=== PATIENT | female | born 1970 | race Caucasian/White ===

== ENCOUNTER 2017-03-07 20:37 | Emergency (ER) | payer OTHER ==
[2017-03-07 20:47] VITALS: BMI 33.3
--- NOTE | 2017-03-07 20:51 | PDOC ---
History of Present Illness - History of Present Illness Initial Comments: 03/07/17 21:14 Patient is a 46 year old female (LNMP: 02/06/17) with significant medical hx of HLD and hyperthyroidism who is presenting to the ED with light vaginal bleeding for three days. The patient states that she notices she expels small amounts of blood when she moves around. Denies any abdominal pain, cramping, nausea, vomiting, dysuria, hematuria, or fevers. Patient's last US was on 02/20/17 which demonstrated questionable gestational sac. /M3 <Nicole Urbina - Last Filed: 03/07/17 21:19> <Aruna Jaime - Last Filed: 03/10/17 08:17> - General Chief Complaint: Vaginal Bleeding Stated Complaint: BLEEDING Time Seen by Provider: 03/07/17 20:51 Past History <Nicole Urbina - Last Filed: 03/07/17 21:19> - Psycho/Social/Smoking Cessation Hx Suicidal Ideation: No Smoking History: Never smoked Have you smoked in the past 12 months: No Information on smoking cessation initiated: No Hx Alcohol Use: No Drug/Substance Use Hx: No <Aruna Jaime - Last Filed: 03/10/17 08:17> - Past Medical History Allergies/Adverse Reactions: Allergies Allergy/AdvReac Type Severity Reaction Status Date / Time No Known Allergies Allergy Verified 03/07/17 21:40 Home Medications: Ambulatory Orders Atorvastatin Ca [Lipitor] 20 mg PO HS 03/07/17 Methimazole 5 mg PO DAILY 03/07/17 Review of Systems - Review of Systems Comments:: 03/07/17 21:18 GENERAL/CONSTITUTIONAL: No fever or chills. No weakness. HEAD, EYES, EARS, NOSE AND THROAT: No change in vision. No ear pain or discharge. No sore throat. CARDIOVASCULAR: No chest pain or shortness of breath. RESPIRATORY: No cough, wheezing, or hemoptysis. GASTROINTESTINAL: No nausea, vomiting, diarrhea or constipation. GENITOURINARY: Vaginal bleeding. No dysuria, frequency, or change in urination. MUSCULOSKELETAL: No joint or muscle swelling or pain. No neck or back pain. ENDOCRINE: No increased thirst. No abnormal weight change. SKIN: No rash NEUROLOGIC: No headache, vertigo, loss of consciousness, or change in strength/ sensation. <Nicole Urbina - Last Filed: 03/07/17 21:19> *Physical Exam - Vital Signs Last Vital Signs Temp Pulse Resp BP Pulse Ox 98.1 F 94 H 18 128/71 99 03/07/17 20:45 03/07/17 20:45 03/07/17 20:45 03/07/17 20:45 03/07/17 20:45 - Physical Exam Comments: 03/07/17 21:18 GENERAL: Awake, alert, and fully oriented, in no acute distress HEAD: No signs of trauma EYES: PERRLA, EOMI, sclera anicteric, conjunctiva clear ENT: Auricles normal inspection, hearing grossly normal, nares patent, oropharynx clear without exudates. Moist mucosa NECK: Normal ROM, supple, no lymphadenopathy, JVD, or masses LUNGS: Breath sounds equal, clear to auscultation bilaterally. No wheezes, and no crackles HEART: Regular rate and rhythm, normal S1 and S2, no murmurs, rubs or gallops ABDOMEN: Soft, nontender, normoactive bowel sounds. No guarding, no rebound. No masses EXTREMITIES: Normal range of motion, no edema. No clubbing or cyanosis. No cords, erythema, or tenderness NEUROLOGICAL: Cranial nerves II through XII grossly intact. Normal speech, normal gait SKIN: Warm, Dry, normal turgor, no rashes or lesions noted. HEMATOLOGIC/LYMPHATIC: No anemia, easy bleeding, or history of blood clots. ALLERGIC/IMMUNOLOGIC: No hives or skin allergy. PELVIC: Trace blood in the vaginal vault. Os is closed. No CMT. No adnexal tenderness. <Nicole Urbina - Last Filed: 03/07/17 21:19> - Vital Signs Last Vital Signs Temp Pulse Resp BP Pulse Ox 98.1 F 94 H 18 128/71 99 03/07/17 20:45 03/07/17 20:45 03/07/17 20:45 03/07/17 20:45 03/07/17 20:45 <Aruna Jaime - Last Filed: 03/10/17 08:17> ED Treatment Course - LABORATORY CBC & Chemistry Diagram: 03/07/17 21:24 03/07/17 21:24 <Aruna Jaime - Last Filed: 03/10/17 08:17> Medical Decision Making - Medical Decision Making 03/07/17 23:02 Pt presents to the ED complaining of heavy vaginal bleeding. LMP was less than a month ago, but patient was seen at her primary [facility] and told that she was . Had a trasvaginal US on 02/20 that showed questionable gestational sac. BHCG here is less than one. Trace blood and closed os on pelvic exam. Differential includes completed AB, menstruation. Will discharge home with instructions to follow up with her PMD. <Aruna Jaime - Last Filed: 03/10/17 08:17> *DC/Admit/Observation/Transfer - Attestations Scribe Attestion: 03/07/17 21:19 Documentation prepared by Nicole Urbina, acting as medical consultant for Aruna Jaime MD. <Nicole Urbina - Last Filed: 03/07/17 21:19> - Discharge Dispostion Admit: No <Aruna Jaime - Last Filed: 03/10/17 08:17> Diagnosis at time of Disposition: Bleeding - Discharge Dispostion Disposition: HOME Condition at time of disposition: Good - Referrals Referrals: STAFF,NOT ON [Non Staff, Medical] - Marah Farr PA [Non Staff, Medical] - 2 Days - Patient Instructions Printed Discharge Instructions: DI for Vaginal Bleeding Additional Instructions: Call your primary [facility] for follow up on Friday. Your blood test was negative today. Return to the ED for heavy bleeding, severe pain, passing out.
[2017-03-07 21:40] LABS: BASOPHIL 0.8 % (0-2.0); MCH 28.8 pg (25.7-33.7); MCHC 33.2 g/dl (32.0-36.0); MEAN CELL VOLUME 86.7 fl (80-96); MEAN PLT VOLUME 7.4 fl (7.5-11.1); NEUTROPHILS 49.6 % (42.8-82.8); PLATELET COUNT 420 K/MM3 (134-434); RDW 14.4 % (11.6-15.6); WHITE BLOOD COUNT 8.6 K/mm3 (4.0-10.0)
[2017-03-07 21:53] LABS: URINE APPEARANCE CLEAR; URINE BILIRUBIN NEGATIVE (NEGATIVE); URINE COLOR YELLOW; URINE GLUCOSE (UA) NEGATIVE (NEGATIVE); URINE KETONE NEGATIVE (NEGATIVE); URINE LEUK ESTERASE NEGATIVE (NEGATIVE); URINE NITRITE NEGATIVE (NEGATIVE); URINE PROTEIN NEGATIVE (NEGATIVE); URINE UROBILINOGEN NEGATIVE E.U./dl (0.2-1.0)
[2017-03-07 21:55] LABS: URINE BLOOD 3+ (NEGATIVE)
[2017-03-07 21:59] LABS: URINE RBC 49 /hpf (0-3)
[2017-03-07 22:36] LABS: ALBUMIN 4.1 g/dl (3.4-5.0); ANION GAP 9 (8-16); CALCIUM 9.4 mg/dL (8.5-10.1); CO2 27 mmol/L (21-32); GLUCOSE,RANDOM 127 mg/dL (74-106); SGOT/AST 14 U/L (15-37); SGPT/ALT 18 U/L (12-78)
[2017-03-07 22:40] LABS: ALK PHOS 78 U/L (45-117); BILIRUBIN,TOTAL 0.5 mg/dL (0.2-1.0); TOT PROT 8.9 g/dl (6.4-8.2)
[2017-03-07 23:31] VITALS: BP 126/74; PULSE 89; TEMP 98
== END 2017-03-07 23:32 | disposition home or self-care (01) ==
LOC: JER 20:37 → SUPCPDRO 20:37 → JER 23:32
DX: N93.8 Other specified abnormal uterine and vaginal bleeding (principal); E78.00 Pure hypercholesterolemia, unspecified; E05.90 Thyrotoxicosis, unspecified without thyrotoxic crisis or storm
CPT/HCPCS: 36415; 80053; 81003; 81015; 84702; 85025; 86850; 86900; 86901; 99283-25

== ENCOUNTER → 2017-06-11 | Day surgery (SDC) | payer OTHER | END | disposition home or self-care (01) | LOC: JRADIR 12:49 | PROVIDERS: ATTEND Obstetrics & Gynecology | PROC: BU0 Imaging, Female Reproductive System, Plain Radiography (ICD-10-PCS; principal; 2017-06-11) | DX: N97.9 Female infertility, unspecified (principal) | CPT/HCPCS: 58340; 74740-TC; 76000-TC; 84703; Q9967 ==